=== PATIENT | female | born 1965 ===

== ENCOUNTER 2018-03-18 09:20 | Day surgery (SDC) | payer OTHER ==
[2018-03-18] MEDS ORDERED: Lactated Ringer's 500 ML IV ONE (09:42)
[2018-03-18] MEDS ORDERED: Propofol 10 mg/ml Inj (20 ML) ONE (10:07)
[2018-03-18 10:54] VITALS: BP 117/65; PULSE 65; RESP 16; TEMP 97.4; O2SAT 98
== END 2018-03-18 10:54 | disposition home or self-care (01) ==
LOC: H.ENDO 09:20
PROVIDERS: ATTEND Internal Medicine Gastroenterology
DX: K59.00 Constipation, unspecified (principal); E11.9 Type 2 diabetes mellitus without complications; E78.5 Hyperlipidemia, unspecified; I10 Essential (primary) hypertension; K64.8 Other hemorrhoids; K57.30 Diverticulosis of large intestine without perforation or abscess without bleeding
CPT/HCPCS: 45378; J2001; J2704; J7120